=== PATIENT | female | born 1960 | race Caucasian/White ===

== ENCOUNTER → 2024-06-26 09:31 | Outpatient (CLI) | payer MEDICARE, OTHER, SELFPAY ==
--- NOTE | 2024-06-26 09:33 | DI.CT.S_ITS ---
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 Small PET positive abnormal lymph nodes with elevated isotope uptake. TECHNIQUE: After the administration of intravenous contrast, 5 mm thick sections acquired from the pulmonary apices to the posterior costophrenic angles. 1 mm axial lung, 5 mm thick coronal and sagittal reformats and 7 mm axial MIP were acquired. For radiation dose reduction, the following was used: automated exposure control, adjustment of mA and/or kV according to patient size. COMPARISON: [place], [place], [place] PET CT FUSION SKULL 2 THIGH, 05/06/2024, 14:25. Outside Facility, CT, CT CHEST W CON, 11/19/2023, 9:56. Outside Facility, CT, CT CHEST W CON, 09/05/2023, 12:48. FINDINGS: Image quality: Diagnostic. Lower Neck: No enlarged lymph nodes. Thyroid: No thyroid nodules which require sonographic follow up, per consensus guidelines. Previously identified multinodular goiter with mild asymmetric right greater than left thyroid enlargement. Axillae: No enlarged lymph nodes. Chest Wall: Port-A-Cath from right-sided approach1 extends into the distal SVC.. Bones: Unremarkable. Lungs and Pleura: No pneumothorax or pleural effusions. No consolidation or new suspicious nodules. A previously identified 1.2 cm right lower lobe lung nodule is again seen abutting the posterior border of the major fissure, PET negative 05/26. Heart: Heart size is normal. No pericardial effusion. Thoracic Vessels: The aorta and pulmonary arteries demonstrate normal size. Mediastinum and Eleni: No significantly enlarged lymph nodes are seen but a previously identified homogeneous mildly enhancing lymph node in the right pretracheal space which was PET positive 05/26 shows no fatty hilum and is best seen centered on series 2, image 28. Esophagus: No wall thickening. No hiatal hernia. Upper Abdomen: Visualized upper abdomen solid organs and bowel loops appear normal. The axial chest CT scanning imaging does not extend into the area that included several PET positive lymph nodes at the infrarenal region and below. The upper margin of a ventral hernia or eventration at the midline is partially included on this examination, previously present. IMPRESSION: No significantly enlarged lymph nodes are seen through the chest but a homogeneous mildly enhancing lymph node is again noted at the right pretracheal space corresponding to a PET positive abnormal appearing lymph node seen 05/06/24. This has not significantly enlarged from that prior examination but shows absence of a central fatty hilum. The prior PET-CT scanning had identified several additional retroperitoneal PET positive nodes below the axial level of the lowest image available from this examination. Dictated by: Tim Dowell M.D. on 06/26/2024 at 13:06 Approved by: Tim Dowell M.D. on 06/26/2024 at 13:21
[2024-06-26 10:16] LABS: Estimated Glomerular Filt Rate 45 mL/min (>60)
== END ==
LOC: CT 09:33
PROVIDERS: Radiology Diagnostic Radiology; PCP Internal Medicine Medical Oncology; Referring Provider Student in an Organized Health Care Education/Training Program; Visit Provider Student in an Organized Health Care Education/Training Program
DX: R59.0 Localized enlarged lymph nodes (principal); R05.9 Cough, unspecified; E04.2 Nontoxic multinodular goiter; R91.1 Solitary pulmonary nodule
CPT/HCPCS: 36415; 71260; 82565; Q9967